=== PATIENT | female | born 1950 | race African-American/Black ===

== ENCOUNTER 2017-11-30 14:55 | Outpatient (CLI) | payer BC | END 2017-11-30 14:56 | disposition home or self-care (01) | LOC: BICULT 14:55 | PROVIDERS: ATTEND Family Medicine | DX: M79.89 Other specified soft tissue disorders (principal) | CPT/HCPCS: 76999 ==

== ENCOUNTER 2018-06-08 14:56 | Outpatient (CLI) | payer BC ==
--- NOTE | 2018-06-08 16:47 | MRI ---
MRI OF LEFT KNEE WITH AND WITHOUT IV CONTRAST 06/08/18 PROVIDED CLINICAL HISTORY: Left knee mass. FINDINGS: Comparison is made with radiographs dated 11/30/17 and ultrasound dated 11/30/17. There is a circumscribed mass present within the subcutaneous adipose layer of the medial aspect of t he knee. This mass measures approximately 7.7 cm in craniocaudal dimension and approximately 8.0 x 4. 6 cm in greatest transverse dimensions. This demonstrates primarily T1 and T2 hyperintense signal int ensity. There are somewhat lobular foci of signal intensity which are intermediate on T2 weighted seq uences and slightly hyperintense to skeletal muscle on T1 weighted sequences. This is superficial to the MCL and knee joint capsule and there is a fat plane noted between this mass and the posterior thi gh and proximal calf musculature. There is no abnormal contrast enhancement demonstrated involving th is mass. At the cranial and medial aspect of this mass, apparently arising from the medial head gastrocnemius- semimembranosus interval is a 2.1 cm focus of signal intensity that differs from the larger main mass . This is T2 hyperintense, demonstrates T1 signal intensity, isointense to skeletal muscle on precont rast sequences and demonstrates contrast enhancement essentially homogeneously. This does not appear to exert mass effect upon the sartorius muscle. It approximates the anterior and medial margin of the sartorius muscle. The amount of fluid within the knee joint appears physiologic. No focal concerning regional marrow si gnal abnormality is evident. The cruciate and collateral ligaments as well as the menisci are subopti yoly evaluated on the basis of this protocol but appear grossly normal. IMPRESSION: Two separate and possibly related masses are present at the medial aspect of the knee. The larger of these demonstrates features suggestive of a primarily hemorrhagic process without evidence for international student counselor al enhancement. There is an enhancing mass present at the superior and medial aspect of this larger m ass that measures about 2.1 cm. Given the enhancement of this mass, neoplasm cannot be excluded. POS: EMMY
== END 2018-06-08 14:57 | disposition home or self-care (01) ==
LOC: SCSMRI 14:56
PROVIDERS: ATTEND Surgery
DX: M79.9 Soft tissue disorder, unspecified (principal)
CPT/HCPCS: 82565